=== PATIENT | female | born 1965 | race Caucasian/White ===

== ENCOUNTER 2017-01-16 19:09 | Observation (INO) ==
[2017-01-16] MEDS ORDERED: SODIUM CHLORIDE 0.9% 1,000 ML IV STA (20:10)
[2017-01-16 20:25] LABS: Basophils % 0.7 % (0.0-0.8); Eosinophils # 0.2 10*3/uL (0.0-0.87); Eosinophils % 3.6 % (0.00-10.9); Hemoglobin 13.3 GM/DL (12.0-16.0); Immature Granulocytes % 0.2 %; Immature Granulocytes Absolute 0.01 #; Lymphocytes # 1.8 10*3/uL (1.4-4.0); Lymphocytes % 32.3 % (21.3-54.2); Mean Corpuscular Hemoglobin 32 PG (27-34); Mean Corpuscular Volume 90.5 FL (87-102); Mean Platelet Volume 11.5 FL (9.6-12.0); Monocytes # 0.6 10*3/uL (0.11-0.8); Neutrophils # 2.9 10*3/uL (1.4-7.4); Neutrophils % 52.2 % (38.7-73.9); Platelet Count 179 T/CUMM (130-400); Red Cell Distribution Width 11.7 % (9.3-17.3); White Blood Count 5.5 T/CUMM (4-12)
[2017-01-16 20:33] LABS: INR 1.1; PT Patient Result 11.7 SECS; Partial Thromboplastin Time 27.9 SECS (0-40)
[2017-01-16 20:40] LABS: Alanine Aminotransferase 14 U/L (13-56); Albumin 3.8 G/DL (3.4-5.0); Alkaline Phosphatase 129 U/L (45-117); Aspartate Amino Transferase 11 U/L (0-37); Blood Urea Nitrogen 9 MG/DL (7-18); Calcium 8.3 MG/DL (8.5-10.1); Glucose 106 MG/DL (74-106); Magnesium 2.1 MG/DL (1.8-2.4); Osmolality,Calculated 288.6 MOS/KG (273-304); Potassium 3.7 MMOL/L (3.5-5.1); Sodium 146 MMOL/L (136-145); Total Protein 6.8 G/DL (6.4-8.3); Troponin I Only < 0.015 NG/ML (0.00-0.045)
[2017-01-16 20:53] LABS: Apearance,Urine CLEAR (Clear); Bacteria,Urine Few /HPF (Few); Bilirubin,Urine Negative (Negative); Blood, Urine Small mg/dL (Negative); Glucose,Urine (UA) Negative (Negative); Ketones,Urine Negative (Negative); Mucus,Urine Occasional /LPF (Occasional); Nitrite,Urine Negative (Negative); Protein,Urine Negative; RBC,Urine 3 /HPF (0-4); Squamous Epithelial Cell,Urine Occasional /HPF (0-10); Transitional Epi Cells,Urine Occasional /HPF (<1); Urine Color Yellow (Yellow); Urine Specific Gravity 1.005 (1.001-1.035); Urine Urobilinogen < 2.0 EU/DL (0.2-1.0); WBC,Urine 17 /HPF (0-6)
[2017-01-16 20:53] LABS: Free T4 (Free Thyroxine) 1.95 NG/DL (0.76-1.46); Thyroid Stimulating Hormone 0.077 uIU/ml (0.358-3.74)
[2017-01-16 21:19] LABS: Barbiturates Screen,Urine Negative (Negative); Benzodiazepines Screen,Urine Positive (Negative); Cannabinoid Screen,Urine Negative (Negative); Opiate Screen,Urine Positive (Negative); Phencyclidine Screen,Urine Negative (Negative)
[2017-01-17] MEDS ORDERED: SODIUM CHLORIDE 0.45% 1,000 ML IV SCH (00:40)
[2017-01-17] MEDS ORDERED: ONDANSETRON 4 MG/2 ML VIAL IV PRN (00:40)
[2017-01-17] MEDS ORDERED: ACETAMINOPHEN 325 MG TABLET PO PRN (00:40)
[2017-01-17] MEDS ORDERED: cloNIDine 0.1 MG TABLET PO ONE (02:59)
[2017-01-17 08:04] VITALS: BP 129/78
[2017-01-17] MEDS ORDERED: DOCUSATE SODIUM 100 MG CAPSULE PO SCH (09:00)
[2017-01-17] MEDS ORDERED: PANTOPRAZOLE 40 MG TABLET PO SCH (09:00)
[2017-01-17] MEDS ORDERED: SODIUM CHLORIDE 0.9% 1,000 ML IV SCH (11:00)
[2017-01-17] MEDS ORDERED: LEVOTHYROXINE 50 MCG TABLET PO SCH (12:00)
[2017-01-17] MEDS ORDERED: buPROPion 75 MG TABLET PO SCH (12:00)
== END 2017-01-17 11:32 | disposition left against medical advice (07) ==
LOC: EDUNIT# → EDBD → N.EDINP 19:09 → N.ED 19:09 → N.TELES 01-17 00:17
PROVIDERS: ADMIT Family Medicine; ATTEND Family Medicine

== ENCOUNTER 2018-05-10 19:20 | Observation (INO) ==
[2018-05-10 20:04] LABS: Basophils % 0.6 % (0.0-0.8); Eosinophils # 0.2 10*3/uL (0.0-0.87); Eosinophils % 2.8 % (0.00-10.9); Hemoglobin 13.1 GM/DL (12.0-16.0); Immature Granulocytes % 0.3 %; Immature Granulocytes Absolute 0.02 #; Lymphocytes # 1.2 10*3/uL (1.4-4.0); Lymphocytes % 20.1 % (21.3-54.2); Mean Corpuscular HGB Conc 34.5 GM/DL (32-36); Mean Corpuscular Hemoglobin 31 PG (27-34); Mean Corpuscular Volume 88.4 FL (87-102); Mean Platelet Volume 11.2 FL (9.6-12.0); Monocytes # 0.5 10*3/uL (0.11-0.8); Neutrophils # 4.2 10*3/uL (1.4-7.4); Neutrophils % 68.2 % (38.7-73.9); Platelet Count 171 T/CUMM (130-400); Red Cell Distribution Width 11.1 % (9.3-17.3); White Blood Count 6.2 T/CUMM (4-12)
[2018-05-10] MEDS ORDERED: SODIUM CHLORIDE 0.9% 1,000 ML IV STA (20:13)
[2018-05-10 20:20] LABS: PT Patient Result 10.5 SECS
[2018-05-10 20:34] LABS: Apearance,Urine CLOUDY (Clear); Bacteria,Urine Occasional /HPF (Few); Bilirubin,Urine Negative (Negative); Blood, Urine Small mg/dL (Negative); Glucose,Urine (UA) Negative (Negative); Ketones,Urine Negative (Negative); Mucus,Urine Occasional /LPF (Occasional); Nitrite,Urine Negative (Negative); Protein,Urine Negative; RBC,Urine 4 /HPF (0-4); Squamous Epithelial Cell,Urine Occasional /HPF (0-10); Urine Color Yellow (Yellow); Urine Specific Gravity 1.009 (1.001-1.035); Urine Urobilinogen < 2.0 EU/DL (0.2-1.0); WBC,Urine 8 /HPF (0-6)
[2018-05-10 20:38] LABS: Albumin 3.2 G/DL (3.4-5.0); Bilirubin,Total 0.5 MG/DL (0.2-1.0); Calcium 8.6 MG/DL (8.5-10.1); Osmolality,Calculated 282.4 MOS/KG (273-304); Potassium 3.6 MMOL/L (3.5-5.1); Total Protein 6.5 G/DL (6.4-8.3)
[2018-05-10] MEDS ORDERED: ASPIRIN EC 325 MG TABLET PO STA (21:22)
[2018-05-10] MEDS ORDERED: cefTRIAXone 250 MG VIAL IV STA (21:47)
[2018-05-10 21:54] LABS: Barbiturates Screen,Urine Negative (Negative); Benzodiazepines Screen,Urine Negative (Negative); Cannabinoid Screen,Urine Negative (Negative); Opiate Screen,Urine Positive (Negative); Phencyclidine Screen,Urine Negative (Negative)
[2018-05-10] MEDS ORDERED: cefTRIAXone 1,000 MG VIAL ONE (22:38)
[2018-05-10] MEDS ORDERED: SODIUM CHLORIDE 0.9% 100 ML IV ONE (22:39)
[2018-05-10] MEDS ORDERED: BISACODYL 5 MG TABLET PO PRN (22:48)
[2018-05-10] MEDS ORDERED: ACETAMINOPHEN 325 MG TABLET PO PRN (22:48)
[2018-05-10] MEDS ORDERED: ONDANSETRON 4 MG/2 ML VIAL IV PRN (22:48)
[2018-05-10] MEDS ORDERED: NICOTINE 21 MG/24 HR PATCH TRANSDERM PRN (22:48)
[2018-05-10] MEDS ORDERED: HALOPERIDOL 5 MG/ML AMP IM PRN (22:48)
[2018-05-10] MEDS ORDERED: diphenhydrAMINE CAP 25 MG CAPSULE PO PRN (22:48)
[2018-05-10 23:17] LABS: Risk Ratio 3.97; Thyroid Stimulating Hormone 6.19 uIU/ml (0.358-3.74)
[2018-05-11] MEDS: SODIUM CHLORIDE 0.9% 1,000 ML IV SCH ×2 (01:45→09:59)
[2018-05-11 05:40] LABS: Basophils % 0.6 % (0.0-0.8); Eosinophils # 0.1 10*3/uL (0.0-0.87); Eosinophils % 2.9 % (0.00-10.9); Hematocrit 33.9 VOL% (35.7-47.0); Hemoglobin 11.4 GM/DL (12.0-16.0); Immature Granulocytes % 0.4 %; Immature Granulocytes Absolute 0.02 #; Lymphocytes # 1.4 10*3/uL (1.4-4.0); Lymphocytes % 28.4 % (21.3-54.2); Mean Corpuscular HGB Conc 33.6 GM/DL (32-36); Mean Corpuscular Hemoglobin 31 PG (27-34); Mean Corpuscular Volume 90.6 FL (87-102); Mean Platelet Volume 11.4 FL (9.6-12.0); Monocytes # 0.5 10*3/uL (0.11-0.8); Monocytes % 9.2 % (1.7-12.7); Neutrophils # 2.9 10*3/uL (1.4-7.4); Neutrophils % 58.5 % (38.7-73.9); Platelet Count 140 T/CUMM (130-400); Red Blood Count 3.74 MC/CUMM (3.8-5.5); Red Cell Distribution Width 11.1 % (9.3-17.3); White Blood Count 4.9 T/CUMM (4-12)
[2018-05-11 06:16] LABS: Alanine Aminotransferase 10 U/L (13-56); Albumin 2.6 G/DL (3.4-5.0); Alkaline Phosphatase 67 U/L (45-117); Aspartate Amino Transferase 10 U/L (0-37); Bilirubin,Total < 0.39 MG/DL (0.2-1.0); Blood Urea Nitrogen 16 MG/DL (7-18); Calcium 7.9 MG/DL (8.5-10.1); Glucose 92 MG/DL (74-106); Osmolality,Calculated 288.7 MOS/KG (273-304); Potassium 4.7 MMOL/L (3.5-5.1); Sodium 145 MMOL/L (136-145); Total Protein 5.4 G/DL (6.4-8.3)
[2018-05-11 07:57] VITALS: BP 101/54
[2018-05-11] MEDS ORDERED: PANTOPRAZOLE 40 MG TABLET PO SCH (09:00)
[2018-05-11] MEDS ORDERED: cefTRIAXone 1,000 MG in SYRINGE 1 EACH IV SCH (23:00)
== END 2018-05-11 13:15 | disposition home or self-care (01) ==
LOC: EDUNIT# → N.EDINP 19:20 → N.ED 19:20 → N.TELES 23:53
PROVIDERS: ADMIT Internal Medicine Geriatric Medicine; ATTEND Internal Medicine Geriatric Medicine

== ENCOUNTER 2020-04-18 04:23 | Inpatient (IN) ==
[2020-04-18] MEDS ORDERED: NITROGLYCERIN SL 0.4 MG TABLET SL STA ×2 (04:34→06:13)
[2020-04-18] MEDS ORDERED: ALBUTEROL/IPRATROPIUM 3 ML NEB RESP TX STA (04:59)
[2020-04-18 05:05] LABS: Basophils # 0.1 10*3/uL (0.0-0.2); Basophils % 0.8 % (0.0-0.8); Eosinophils # 0.3 10*3/uL (0.0-0.87); Eosinophils % 3.8 % (0.00-10.9); Hematocrit 45.3 VOL% (35.7-47.0); Hemoglobin 15.3 GM/DL (12.0-16.0); Immature Granulocytes % 0.3 %; Immature Granulocytes Absolute 0.02 #; Lymphocytes # 1.9 10*3/uL (1.4-4.0); Lymphocytes % 25.1 % (21.3-54.2); Mean Corpuscular HGB Conc 33.8 GM/DL (32-36); Mean Corpuscular Volume 94.2 FL (87-102); Mean Platelet Volume 10.5 FL (9.6-12.0); Monocytes % 7.5 % (1.7-12.7); Neutrophils % 62.5 % (38.7-73.9); Platelet Count 165 T/CUMM (130-400); Red Blood Count 4.81 MC/CUMM (3.8-5.5); Red Cell Distribution Width 11.9 % (9.3-17.3); White Blood Count 7.6 T/CUMM (4-12)
[2020-04-18 05:14] LABS: Albumin 3.9 G/DL (3.4-5.0); Bilirubin,Total 0.6 MG/DL (0.2-1.0); Calcium 8.6 MG/DL (8.5-10.1); Osmolality,Calculated 279.4 MOS/KG (273-304)
[2020-04-18] MEDS ORDERED: ENOXAPARIN 30 MG/0.3 ML SYRINGE SUBCUT STA (05:14)
[2020-04-18] MEDS ORDERED: CLOPIDOGREL 300 MG TABLET PO STA (05:14)
[2020-04-18] MEDS ORDERED: ONDANSETRON 4 MG/2 ML VIAL IV PRN (05:22)
[2020-04-18] MEDS ORDERED: ASPIRIN CHEW 81 MG TABLET PO STA (05:22)
[2020-04-18] MEDS ORDERED: MAGNESIUM SULF RIDER 4 GM in PREMIX 1 EACH IV PRN (05:22)
[2020-04-18] MEDS ORDERED: MAGNESIUM SULF RIDER 2 GM in PREMIX 1 EACH IV PRN (05:22)
[2020-04-18] MEDS ORDERED: ENOXAPARIN 40 MG/0.4 ML SYRINGE ONE (05:30)
[2020-04-18] MEDS: ALBUTEROL/IPRATROPIUM 3 ML NEB RESP TX SCH ×3 (07:55→19:30)
[2020-04-18] MEDS: ENOXAPARIN 40 MG/0.4 ML SYRINGE SUBCUT SCH ×2 (08:29→20:00)
[2020-04-18] MEDS: DEXTROSE 5% NACL 0.45% 1,000 ML IV SCH ×4 (08:44→20:00)
[2020-04-18] MEDS ORDERED: NICOTINE 14 MG/24 HR PATCH TRANSDERM PRN (10:36)
[2020-04-18] MEDS ORDERED: BACLOFEN 10 MG TABLET PO PRN (12:30)
[2020-04-18] MEDS: NITROGLYCERIN SL 0.4 MG TABLET SL PRN ×2 (15:25→15:30)
[2020-04-19] MEDS: ALBUTEROL/IPRATROPIUM 3 ML NEB RESP TX SCH ×4 (01:12→19:14)
[2020-04-19] MEDS: DEXTROSE 5% NACL 0.45% 1,000 ML IV SCH ×3 (03:04→19:06)
[2020-04-19] MEDS: NITROGLYCERIN SL 0.4 MG TABLET SL PRN ×3 (07:09→07:38)
[2020-04-19] MEDS ORDERED: NITROGLYCERIN 2% OINT 1 INCH/GM PACK TOP ONE (08:06)
[2020-04-19] MEDS: CLOPIDOGREL 75 MG TABLET PO SCH (08:21)
[2020-04-19] MEDS: NITROGLYCERIN 2% OINT 1 INCH/GM PACK TOP SCH ×5 (08:21→17:45)
[2020-04-19] MEDS: METOPROLOL SUCCINATE XL 25 MG TABLET PO SCH (08:21)
[2020-04-19] MEDS: lisinopriL 20 MG TABLET PO SCH (08:21)
[2020-04-19] MEDS: ATORVASTATIN 40 MG TABLET PO SCH (08:21)
[2020-04-19] MEDS: ASPIRIN EC 81 MG TABLET PO SCH (08:21)
[2020-04-19] MEDS: ENOXAPARIN 40 MG/0.4 ML SYRINGE SUBCUT SCH ×2 (08:24→20:37)
[2020-04-19] MEDS ORDERED: MAGNESIUM SULF RIDER 2 GM in PREMIX 1 EACH IV PRN (12:34)
[2020-04-19] MEDS ORDERED: POTASSIUM CHLORIDE RIDER 10 MEQ in PREMIX 1 EACH IV PRN (12:34)
[2020-04-20] MEDS: NITROGLYCERIN 2% OINT 1 INCH/GM PACK TOP SCH ×4 (00:19→17:05)
[2020-04-20] MEDS: ALBUTEROL/IPRATROPIUM 3 ML NEB RESP TX SCH ×4 (00:56→19:16)
[2020-04-20] MEDS: DEXTROSE 5% NACL 0.45% 1,000 ML IV SCH (03:06)
[2020-04-20 06:53] LABS: Basophils % 0.8 % (0.0-0.8); Eosinophils # 0.2 10*3/uL (0.0-0.87); Eosinophils % 6.1 % (0.00-10.9); Hematocrit 34.5 VOL% (35.7-47.0); Hemoglobin 11.4 GM/DL (12.0-16.0); Lymphocytes # 0.8 10*3/uL (1.4-4.0); Lymphocytes % 29.2 % (21.3-54.2); Mean Corpuscular Volume 96.1 FL (87-102); Mean Platelet Volume 10.7 FL (9.6-12.0); Monocytes % 9.8 % (1.7-12.7); Neutrophils % 54.1 % (38.7-73.9); Platelet Count 101 T/CUMM (130-400); Red Blood Count 3.59 MC/CUMM (3.8-5.5); White Blood Count 2.6 T/CUMM (4-12)
[2020-04-20 07:10] LABS: Calcium 7.9 MG/DL (8.5-10.1); Osmolality,Calculated 284.8 MOS/KG (273-304)
[2020-04-20 07:28] LABS: Hypochromasia 1+; Microcytosis 1+; Platelet Estimate Decreased
[2020-04-20] MEDS ORDERED: diphenhydrAMINE 50 MG/1 ML VIAL IV ONE (07:30)
[2020-04-20] MEDS ORDERED: methylPREDNISolone SOD SUC 125 MG/2 ML VIAL IV ONE (07:30)
[2020-04-20] MEDS: CLOPIDOGREL 75 MG TABLET PO SCH (08:42)
[2020-04-20] MEDS: lisinopriL 20 MG TABLET PO SCH (08:42)
[2020-04-20] MEDS: ASPIRIN EC 81 MG TABLET PO SCH (08:42)
[2020-04-20] MEDS: ATORVASTATIN 40 MG TABLET PO SCH (08:42)
[2020-04-20] MEDS: FAMOTIDINE 20 MG/2 ML VIAL IV SCH ×2 (08:42→21:43)
[2020-04-20] MEDS: METOPROLOL SUCCINATE XL 25 MG TABLET PO SCH ×2 (08:42→21:43)
[2020-04-20] MEDS: ENOXAPARIN 40 MG/0.4 ML SYRINGE SUBCUT SCH ×2 (08:42→21:43)
[2020-04-20] MEDS ORDERED: HEPARIN/NACL 0.9% 2 UNITS/ML 1,000 ML IV ONE (11:44)
[2020-04-20] MEDS ORDERED: LIDOCAINE 1% 20 ML VIAL ONE (11:44)
[2020-04-20] MEDS ORDERED: HEPARIN/NACL 0.9% 2 UNITS/ML 500 ML IV ONE (11:45)
[2020-04-20] MEDS ORDERED: HEPARIN/NACL 0.9% 2 UNITS/ML 0 ML IV ONE (14:10)
[2020-04-20] MEDS ORDERED: MIDAZOLAM 2 MG/2 ML VIAL ONE (14:15)
[2020-04-20] MEDS ORDERED: HYDROmorphone 2 MG/1 ML VIAL ONE (14:35)
[2020-04-20] MEDS ORDERED: hydrALAZINE 20 MG/1 ML VIAL ONE (14:40)
[2020-04-20] MEDS ORDERED: HEPARIN 5,000 UNIT/1 ML VIAL ONE (14:48)
[2020-04-20] MEDS ORDERED: CLOPIDOGREL 300 MG TABLET ONE (14:49)
[2020-04-20] MEDS ORDERED: NITROGLYCERIN DRIP 50 MG/250 ML BOTTLE IV ONE (14:50)
[2020-04-20] MEDS ORDERED: LABETALOL 20 MG/4 ML SYRINGE IV ONE (15:24)
[2020-04-21] MEDS: NITROGLYCERIN 2% OINT 1 INCH/GM PACK TOP SCH ×2 (00:51→06:36)
[2020-04-21] MEDS: ALBUTEROL/IPRATROPIUM 3 ML NEB RESP TX SCH ×2 (02:10→07:35)
[2020-04-21 05:11] LABS: Hematocrit 33.4 VOL% (35.7-47.0); Hemoglobin 11.3 GM/DL (12.0-16.0); Immature Granulocytes % 0.9 %; Immature Granulocytes Absolute 0.04 #; Lymphocytes # 0.5 10*3/uL (1.4-4.0); Mean Corpuscular HGB Conc 33.8 GM/DL (32-36); Mean Corpuscular Volume 95.4 FL (87-102); Mean Platelet Volume 11.5 FL (9.6-12.0); Monocytes % 3.5 % (1.7-12.7); Neutrophils % 85.6 % (38.7-73.9); Platelet Count 123 T/CUMM (130-400); Red Cell Distribution Width 12.2 % (9.3-17.3); White Blood Count 4.6 T/CUMM (4-12)
[2020-04-21 05:37] LABS: Calcium 8.1 MG/DL (8.5-10.1); Osmolality,Calculated 289.7 MOS/KG (273-304)
[2020-04-21] MEDS: ASPIRIN EC 81 MG TABLET PO SCH (09:04)
[2020-04-21] MEDS: FAMOTIDINE 20 MG/2 ML VIAL IV SCH (09:04)
[2020-04-21] MEDS: lisinopriL 20 MG TABLET PO SCH (09:04)
[2020-04-21] MEDS: CLOPIDOGREL 75 MG TABLET PO SCH (09:05)
[2020-04-21] MEDS: ATORVASTATIN 40 MG TABLET PO SCH (09:05)
[2020-04-21] MEDS: METOPROLOL SUCCINATE XL 25 MG TABLET PO SCH (09:05)
[2020-04-21 11:57] VITALS: BP 152/105
== END 2020-04-21 13:00 | disposition home or self-care (01) | DRG 247 ==
LOC: EDBD → EDUNIT# → N.ED 04:23 → N.EDINP 04:23 → N.TELES 08:24
PROVIDERS: ADMIT Internal Medicine Cardiovascular Disease; ATTEND Internal Medicine Cardiovascular Disease
PROC: CLCCHCL (ICD-10-PCS; 2020-04-20 12:45)

== ENCOUNTER 2020-06-30 15:47 | Inpatient (IN) ==
[2020-06-30] MEDS ORDERED: ACETAMINOPHEN 325 MG TABLET PO PRN (15:54)
[2020-06-30] MEDS ORDERED: ZALEPLON 5 MG CAPSULE PO PRN (15:54)
[2020-06-30] MEDS ORDERED: MAGNESIUM SULF RIDER 2 GM in PREMIX 1 EACH IV PRN (15:54)
[2020-06-30] MEDS ORDERED: MAGNESIUM SULF RIDER 4 GM in PREMIX 1 EACH IV PRN (15:54)
[2020-06-30] MEDS ORDERED: diphenhydrAMINE CAP 25 MG CAPSULE PO PRN (15:54)
[2020-06-30] MEDS ORDERED: SIMETHICONE CHEW 125 MG TABLET PO PRN (15:54)
[2020-06-30] MEDS ORDERED: ALBUTEROL 1.25 MG/3 ML NEB RESP TX PRN (15:59)
[2020-06-30] MEDS ORDERED: NITROGLYCERIN SL 0.4 MG TABLET SL PRN (15:59)
[2020-06-30] MEDS ORDERED: ENOXAPARIN 40 MG/0.4 ML SYRINGE SUBCUT ONE (16:00)
[2020-06-30] MEDS ORDERED: NICOTINE 21 MG/24 HR PATCH TRANSDERM PRN (16:01)
[2020-06-30 17:49] LABS: Basophils # 0.1 10*3/uL (0.0-0.2); Basophils % 1.5 % (0.0-0.8); Eosinophils # 0.4 10*3/uL (0.0-0.87); Eosinophils % 4.2 % (0.00-10.9); Hematocrit 49.8 VOL% (35.7-47.0); Hemoglobin 16.3 GM/DL (12.0-16.0); Immature Granulocytes % 0.5 %; Immature Granulocytes Absolute 0.04 #; Lymphocytes # 2.6 10*3/uL (1.4-4.0); Lymphocytes % 29.7 % (21.3-54.2); Mean Corpuscular HGB Conc 32.7 GM/DL (32-36); Mean Corpuscular Volume 94.9 FL (87-102); Mean Platelet Volume 10.8 FL (9.6-12.0); Neutrophils % 55.1 % (38.7-73.9); Platelet Count 265 T/CUMM (130-400); Red Blood Count 5.25 MC/CUMM (3.8-5.5); Red Cell Distribution Width 11.9 % (9.3-17.3); White Blood Count 8.7 T/CUMM (4-12)
[2020-06-30] MEDS: diphenhydrAMINE CAP 25 MG CAPSULE PO SCH ×2 (18:05→23:43)
[2020-06-30 18:13] LABS: Albumin 4.6 G/DL (3.4-5.0); Bilirubin,Total 0.5 MG/DL (0.2-1.0); Calcium 9.5 MG/DL (8.5-10.1); Osmolality,Calculated 272.2 MOS/KG (273-304); Potassium 3.7 MMOL/L (3.5-5.1); Total Protein 8.1 G/DL (6.4-8.2)
[2020-06-30] MEDS: BACLOFEN 10 MG TABLET PO SCH (20:38)
[2020-06-30] MEDS: ATORVASTATIN 40 MG TABLET PO SCH (20:38)
[2020-06-30] MEDS: methylPREDNISolone SOD SUC 125 MG/2 ML VIAL IV SCH (20:39)
[2020-06-30] MEDS: FAMOTIDINE 20 MG/2 ML VIAL IV SCH (20:40)
[2020-07-01] MEDS: FAMOTIDINE 20 MG/2 ML VIAL IV SCH ×3 (04:47→15:54)
[2020-07-01] MEDS: methylPREDNISolone SOD SUC 125 MG/2 ML VIAL IV SCH ×3 (04:51→15:54)
[2020-07-01] MEDS: diphenhydrAMINE CAP 25 MG CAPSULE PO SCH ×3 (05:20→18:23)
[2020-07-01 05:46] LABS: Basophils % 0.9 % (0.0-0.8); Eosinophils % 0.3 % (0.00-10.9); Hematocrit 44.1 VOL% (35.7-47.0); Hemoglobin 14.8 GM/DL (12.0-16.0); Immature Granulocytes % 0.6 %; Immature Granulocytes Absolute 0.02 #; Lymphocytes # 0.7 10*3/uL (1.4-4.0); Lymphocytes % 21.1 % (21.3-54.2); Mean Corpuscular HGB Conc 33.6 GM/DL (32-36); Mean Corpuscular Volume 92.5 FL (87-102); Monocytes % 1.4 % (1.7-12.7); Neutrophils % 75.7 % (38.7-73.9); Platelet Count 211 T/CUMM (130-400); Red Blood Count 4.77 MC/CUMM (3.8-5.5); Red Cell Distribution Width 11.8 % (9.3-17.3); White Blood Count 3.5 T/CUMM (4-12)
[2020-07-01 06:06] LABS: Albumin 3.9 G/DL (3.4-5.0); Bilirubin,Total 0.9 MG/DL (0.2-1.0); Osmolality,Calculated 273.4 MOS/KG (273-304); Potassium 4.1 MMOL/L (3.5-5.1); Total Protein 6.8 G/DL (6.4-8.2)
[2020-07-01 06:15] LABS: Lymphocytes 22 % (20-55); Segmented Neutrophils 78 % (50-85); Total Cells Counted 100
[2020-07-01 06:16] LABS: Hypochromasia 1+; Microcytosis 1+; Platelet Estimate Normal
[2020-07-01] MEDS: LEVOTHYROXINE 50 MCG TABLET PO SCH (06:51)
[2020-07-01] MEDS ORDERED: DIAZEPAM 5 MG TABLET PO ONE (09:43)
[2020-07-01] MEDS ORDERED: diphenhydrAMINE CAP 25 MG CAPSULE PO ONE (09:43)
[2020-07-01] MEDS ORDERED: NON-FORMULARY MEDICATION (Ondansetron Hcl 8 mg Tablet) PO PRN (09:44)
[2020-07-01] MEDS ORDERED: NON-FORMULARY MEDICATION (Albuterol Sulfate [Ventolin Hfa] 90 mcg/actuation HFA aerosol in INH PRN (09:44)
[2020-07-01] MEDS: BACLOFEN 10 MG TABLET PO SCH ×3 (09:59→22:26)
[2020-07-01] MEDS: hydroCHLOROthiazide 25 MG TABLET PO SCH (09:59)
[2020-07-01] MEDS: ASPIRIN EC 81 MG TABLET PO SCH (10:25)
[2020-07-01] MEDS: PANTOPRAZOLE 40 MG TABLET PO SCH (10:26)
[2020-07-01] MEDS: CLOPIDOGREL 75 MG TABLET PO SCH (10:26)
[2020-07-01] MEDS: SODIUM CHLORIDE 0.45% 1,000 ML IV SCH ×3 (10:26→19:25)
[2020-07-01] MEDS ORDERED: LIDOCAINE 1% 20 ML VIAL ONE (10:53)
[2020-07-01] MEDS ORDERED: HEPARIN/NACL 0.9% 2 UNITS/ML 1,500 ML IV ONE (10:53)
[2020-07-01] MEDS ORDERED: amLODIPine 5 MG TABLET PO SCH (11:00)
[2020-07-01] MEDS ORDERED: HYDROmorphone 2 MG/1 ML VIAL ONE (11:33)
[2020-07-01] MEDS ORDERED: MIDAZOLAM 2 MG/2 ML VIAL ONE (11:33)
[2020-07-01] MEDS ORDERED: NITROGLYCERIN DRIP 50 MG/250 ML BOTTLE IV ONE (11:52)
[2020-07-01] MEDS ORDERED: HEPARIN 5,000 UNIT/1 ML VIAL ONE (11:59)
[2020-07-01] MEDS: ATORVASTATIN 40 MG TABLET PO SCH (20:50)
[2020-07-02] MEDS: diphenhydrAMINE CAP 25 MG CAPSULE PO SCH ×4 (00:10→18:18)
[2020-07-02] MEDS: FAMOTIDINE 20 MG/2 ML VIAL IV SCH ×2 (04:10→17:50)
[2020-07-02] MEDS: methylPREDNISolone SOD SUC 125 MG/2 ML VIAL IV SCH ×2 (04:12→17:50)
[2020-07-02] MEDS: ONDANSETRON 4 MG/2 ML VIAL IV PRN ×4 (04:15→20:54)
[2020-07-02] MEDS ORDERED: MORPHINE 4 MG/1 ML VIAL IV ONE (05:03)
[2020-07-02] MEDS ORDERED: PROMETHAZINE 25 MG/1 ML VIAL IM STA (05:19)
[2020-07-02] MEDS: LEVOTHYROXINE 50 MCG TABLET PO SCH (05:57)
[2020-07-02 07:25] LABS: Basophils % 0.1 % (0.0-0.8); Hematocrit 46.3 VOL% (35.7-47.0); Hemoglobin 16.2 GM/DL (12.0-16.0); Immature Granulocytes % 0.6 %; Immature Granulocytes Absolute 0.14 #; Lymphocytes # 0.7 10*3/uL (1.4-4.0); Lymphocytes % 3.1 % (21.3-54.2); Mean Corpuscular Volume 88.5 FL (87-102); Mean Platelet Volume 10.9 FL (9.6-12.0); Monocytes % 3.2 % (1.7-12.7); Platelet Count 222 T/CUMM (130-400); Red Blood Count 5.23 MC/CUMM (3.8-5.5); Red Cell Distribution Width 11.8 % (9.3-17.3); White Blood Count 21.9 T/CUMM (4-12)
[2020-07-02 07:43] LABS: Calcium 9.4 MG/DL (8.5-10.1); Osmolality,Calculated 273.4 MOS/KG (273-304)
[2020-07-02 07:54] LABS: Band Neutrophils 2 % (0-10); Hypochromasia 1+; Lymphocytes 1 % (20-55); Microcytosis 1+; Platelet Estimate Normal; Segmented Neutrophils 94 % (50-85); Total Cells Counted 100
[2020-07-02 09:37] LABS: Risk Ratio 2.39; VLDL CHOLESTEROL 20.6 MG/DL
[2020-07-02] MEDS: PANTOPRAZOLE 40 MG TABLET PO SCH (10:02)
[2020-07-02] MEDS: ASPIRIN EC 81 MG TABLET PO SCH (10:02)
[2020-07-02] MEDS: hydroCHLOROthiazide 25 MG TABLET PO SCH (10:02)
[2020-07-02] MEDS: CLOPIDOGREL 75 MG TABLET PO SCH (10:02)
[2020-07-02] MEDS: amLODIPine 10 MG TABLET PO SCH (10:03)
[2020-07-02] MEDS: BACLOFEN 10 MG TABLET PO SCH ×3 (10:06→20:56)
[2020-07-02] MEDS: BUDESONIDE/FORMOTEROL 80-4.5 INHALER 6.9 GM INH SCH (10:06)
[2020-07-02] MEDS ORDERED: hydrALAZINE 20 MG/1 ML VIAL IV PRN (10:19)
[2020-07-02 14:14] LABS: Albumin 4.2 G/DL (3.4-5.0); Bilirubin,Direct 0.22 MG/DL (0.0-0.20); Bilirubin,Indirect 0.3 MG/DL (0.0-1.0); Bilirubin,Total 0.5 MG/DL (0.2-1.0); Total Protein 7.4 G/DL (6.4-8.2)
[2020-07-02] MEDS: ATORVASTATIN 40 MG TABLET PO SCH (20:54)
[2020-07-03] MEDS: SODIUM CHLORIDE 0.45% 1,000 ML IV SCH ×3 (00:15→20:51)
[2020-07-03] MEDS: diphenhydrAMINE CAP 25 MG CAPSULE PO SCH ×2 (00:15→05:30)
[2020-07-03] MEDS: FAMOTIDINE 20 MG/2 ML VIAL IV SCH (04:00)
[2020-07-03] MEDS: methylPREDNISolone SOD SUC 125 MG/2 ML VIAL IV SCH (04:02)
[2020-07-03 05:18] LABS: Basophils % 0.1 % (0.0-0.8); Hematocrit 45.7 VOL% (35.7-47.0); Hemoglobin 16.2 GM/DL (12.0-16.0); Immature Granulocytes % 0.4 %; Immature Granulocytes Absolute 0.05 #; Lymphocytes % 6.9 % (21.3-54.2); Mean Corpuscular HGB Conc 35.4 GM/DL (32-36); Mean Corpuscular Volume 87.2 FL (87-102); Mean Platelet Volume 11.2 FL (9.6-12.0); Monocytes % 7.8 % (1.7-12.7); Neutrophils % 84.8 % (38.7-73.9); Platelet Count 223 T/CUMM (130-400); Red Blood Count 5.24 MC/CUMM (3.8-5.5); Red Cell Distribution Width 11.8 % (9.3-17.3); White Blood Count 14.1 T/CUMM (4-12)
[2020-07-03] MEDS: LEVOTHYROXINE 50 MCG TABLET PO SCH (05:30)
[2020-07-03 05:36] LABS: Calcium 8.1 MG/DL (8.5-10.1); Osmolality,Calculated 268.8 MOS/KG (273-304); Potassium 4.6 MMOL/L (3.5-5.1)
[2020-07-03] MEDS: amLODIPine 10 MG TABLET PO SCH (09:15)
[2020-07-03] MEDS: PANTOPRAZOLE 40 MG TABLET PO SCH (09:15)
[2020-07-03] MEDS: hydroCHLOROthiazide 25 MG TABLET PO SCH (09:15)
[2020-07-03] MEDS: ASPIRIN EC 81 MG TABLET PO SCH (09:15)
[2020-07-03] MEDS: BACLOFEN 10 MG TABLET PO SCH ×3 (09:15→20:51)
[2020-07-03] MEDS: CLOPIDOGREL 75 MG TABLET PO SCH (09:15)
[2020-07-03] MEDS: BUDESONIDE/FORMOTEROL 80-4.5 INHALER 6.9 GM INH SCH (09:17)
[2020-07-03] MEDS: hydrALAZINE 20 MG/1 ML VIAL IV SCH ×3 (09:39→20:50)
[2020-07-03] MEDS: ATORVASTATIN 40 MG TABLET PO SCH (20:48)
[2020-07-04] MEDS: hydrALAZINE 20 MG/1 ML VIAL IV SCH ×2 (03:10→09:23)
[2020-07-04 05:20] LABS: Basophils % 0.1 % (0.0-0.8); Hematocrit 38.6 VOL% (35.7-47.0); Immature Granulocytes % 0.5 %; Immature Granulocytes Absolute 0.06 #; Lymphocytes # 1.1 10*3/uL (1.4-4.0); Lymphocytes % 9.2 % (21.3-54.2); Mean Corpuscular HGB Conc 33.2 GM/DL (32-36); Mean Corpuscular Volume 93.9 FL (87-102); Mean Platelet Volume 11.4 FL (9.6-12.0); Monocytes % 13.6 % (1.7-12.7); Neutrophils % 76.6 % (38.7-73.9); Red Cell Distribution Width 11.9 % (9.3-17.3)
[2020-07-04 05:33] LABS: Calcium 7.6 MG/DL (8.5-10.1); Osmolality,Calculated 273.2 MOS/KG (273-304); Potassium 3.7 MMOL/L (3.5-5.1)
[2020-07-04 06:08] LABS: Hemoglobin 12.8 GM/DL (12.0-16.0); Red Blood Count 4.11 MC/CUMM (3.8-5.5); White Blood Count 12.3 T/CUMM (4-12)
[2020-07-04 06:09] LABS: Platelet Count 144 T/CUMM (130-400)
[2020-07-04] MEDS: LEVOTHYROXINE 50 MCG TABLET PO SCH (06:15)
[2020-07-04] MEDS: SODIUM CHLORIDE 0.45% 1,000 ML IV SCH (06:15)
[2020-07-04] MEDS: hydroCHLOROthiazide 25 MG TABLET PO SCH (09:21)
[2020-07-04] MEDS: CLOPIDOGREL 75 MG TABLET PO SCH (09:22)
[2020-07-04] MEDS: amLODIPine 10 MG TABLET PO SCH (09:22)
[2020-07-04] MEDS: PANTOPRAZOLE 40 MG TABLET PO SCH (09:22)
[2020-07-04] MEDS: BACLOFEN 10 MG TABLET PO SCH (09:22)
[2020-07-04] MEDS: ASPIRIN EC 81 MG TABLET PO SCH (09:26)
[2020-07-04] MEDS: BUDESONIDE/FORMOTEROL 80-4.5 INHALER 6.9 GM INH SCH (09:33)
[2020-07-04 12:38] VITALS: BP 118/72
== END 2020-07-04 13:11 | disposition home health service (06) | DRG 981 ==
LOC: INTOOBSV 17:06 → N.TELES 17:06
PROVIDERS: ADMIT Internal Medicine Cardiovascular Disease; ATTEND Internal Medicine Cardiovascular Disease
PROC: CLCCHCL (ICD-10-PCS; 2020-07-01 11:45)

== ENCOUNTER 2020-09-27 09:12 | Observation (INO) ==
[2020-09-27] MEDS ORDERED: methylPREDNISolone SOD SUC 125 MG/2 ML VIAL IV STA (09:44)
[2020-09-27] MEDS ORDERED: ALBUTEROL 2.5 MG/3 ML NEB RESP TX STA (09:44)
[2020-09-27] MEDS ORDERED: amLODIPine 5 MG TABLET PO STA (09:46)
[2020-09-27 10:12] LABS: Basophils # 0.1 10*3/uL (0.0-0.2); Basophils % 1.5 % (0.0-0.8); Eosinophils # 0.2 10*3/uL (0.0-0.87); Eosinophils % 4.1 % (0.00-10.9); Hematocrit 45.4 VOL% (35.7-47.0); Hemoglobin 15.1 GM/DL (12.0-16.0); Immature Granulocytes % 0.3 %; Immature Granulocytes Absolute 0.02 #; Lymphocytes # 1.5 10*3/uL (1.4-4.0); Lymphocytes % 25.9 % (21.3-54.2); Mean Corpuscular HGB Conc 33.3 GM/DL (32-36); Mean Platelet Volume 10.6 FL (9.6-12.0); Monocytes % 9.2 % (1.7-12.7); Platelet Count 179 T/CUMM (130-400); Red Blood Count 4.88 MC/CUMM (3.8-5.5); Red Cell Distribution Width 12.6 % (9.3-17.3); White Blood Count 5.9 T/CUMM (4-12)
[2020-09-27 10:29] LABS: Calcium 8.7 MG/DL (8.5-10.1); Osmolality,Calculated 280.1 MOS/KG (273-304); Potassium 3.3 MMOL/L (3.5-5.1)
[2020-09-27] MEDS ORDERED: ONDANSETRON 4 MG/2 ML VIAL IV PRN (12:07)
[2020-09-27] MEDS ORDERED: GLUCAGON 1 MG VIAL IM PRN (12:07)
[2020-09-27] MEDS ORDERED: DEXTROSE 50% 25 GM/50 ML VIAL IV PRN (12:07)
[2020-09-27] MEDS: ENOXAPARIN 40 MG/0.4 ML SYRINGE SUBCUT SCH (13:14)
[2020-09-27] MEDS: CLOPIDOGREL 75 MG TABLET PO SCH (13:14)
[2020-09-27] MEDS: PANTOPRAZOLE 40 MG TABLET PO SCH (13:44)
[2020-09-27] MEDS: NICOTINE 14 MG/24 HR PATCH TRANSDERM SCH (13:44)
[2020-09-27] MEDS: ALBUTEROL/IPRATROPIUM 3 ML NEB RESP TX SCH (15:51)
[2020-09-27] MEDS: POTASSIUM CHLORIDE 20 MEQ TABLET PO PRN ×3 (15:54→21:30)
[2020-09-27] MEDS: BUDESONIDE/FORMOTEROL 80-4.5 INHALER 6.9 GM INH SCH (18:15)
[2020-09-27] MEDS ORDERED: ATORVASTATIN 40 MG TABLET PO SCH ×2 (19:00→21:00)
[2020-09-27] MEDS ORDERED: methylPREDNISolone SOD SUC 40 MG/1 ML VIAL IV ONE (20:12)
[2020-09-27] MEDS ORDERED: ZALEPLON 5 MG CAPSULE PO PRN (22:17)
[2020-09-28] MEDS: ALBUTEROL/IPRATROPIUM 3 ML NEB RESP TX SCH ×3 (00:29→15:00)
[2020-09-28 05:18] LABS: Calcium 8.8 MG/DL (8.5-10.1); Osmolality,Calculated 288.8 MOS/KG (273-304); Potassium 4.8 MMOL/L (3.5-5.1); Thyroid Stimulating Hormone 0.488 uIU/ml (0.358-3.74)
[2020-09-28] MEDS ORDERED: LEVOTHYROXINE 75 MCG TABLET PO SCH (07:30)
[2020-09-28] MEDS ORDERED: amLODIPine 5 MG TABLET PO SCH (09:00)
[2020-09-28] MEDS ORDERED: ASPIRIN EC 81 MG TABLET PO SCH (09:00)
[2020-09-28] MEDS: NICOTINE 14 MG/24 HR PATCH TRANSDERM SCH (10:41)
[2020-09-28] MEDS: BUDESONIDE/FORMOTEROL 80-4.5 INHALER 6.9 GM INH SCH (10:41)
[2020-09-28] MEDS: CLOPIDOGREL 75 MG TABLET PO SCH (10:41)
[2020-09-28] MEDS: PANTOPRAZOLE 40 MG TABLET PO SCH (10:41)
[2020-09-28] MEDS: ENOXAPARIN 40 MG/0.4 ML SYRINGE SUBCUT SCH (15:55)
[2020-09-28 17:23] VITALS: BP 118/74
== END 2020-09-28 18:13 | disposition home or self-care (01) ==
LOC: N.EDINP 09:12 → N.ED 09:12 → SUATTDRO 12:07 → N.TELEN 12:32
PROVIDERS: ADMIT Internal Medicine; ATTEND Internal Medicine

== ENCOUNTER 2020-11-01 12:05 | Inpatient (IN) ==
[2020-11-01] MEDS ORDERED: ALBUTEROL 2.5 MG/3 ML NEB RESP TX STA ×2 (14:22→15:21)
[2020-11-01] MEDS ORDERED: methylPREDNISolone SOD SUC 40 MG/1 ML VIAL IV STA (14:24)
[2020-11-01 15:34] LABS: Basophils # 0.1 10*3/uL (0.0-0.2); Basophils % 1.4 % (0.0-0.8); Eosinophils # 0.3 10*3/uL (0.0-0.87); Eosinophils % 6.4 % (0.00-10.9); Hematocrit 39.9 VOL% (35.7-47.0); Hemoglobin 12.8 GM/DL (12.0-16.0); Immature Granulocytes % 0.2 %; Immature Granulocytes Absolute 0.01 #; Lymphocytes # 1.7 10*3/uL (1.4-4.0); Lymphocytes % 33.1 % (21.3-54.2); Mean Corpuscular HGB Conc 32.1 GM/DL (32-36); Mean Corpuscular Volume 95.2 FL (87-102); Mean Platelet Volume 11.6 FL (9.6-12.0); Monocytes % 12.7 % (1.7-12.7); Neutrophils % 46.2 % (38.7-73.9); Platelet Count 132 T/CUMM (130-400); Red Blood Count 4.19 MC/CUMM (3.8-5.5); Red Cell Distribution Width 11.7 % (9.3-17.3)
[2020-11-01 15:56] LABS: Albumin 3.5 G/DL (3.4-5.0); Bilirubin,Total 0.4 MG/DL (0.20-1.00); Calcium 8.1 MG/DL (8.5-10.1)
[2020-11-01 16:05] LABS: Atypical Lymphocytes 1+; Eosinophils 4 % (0-10); Lymphocytes 34 % (20-55); Macrocytosis Slight; Reactive Lymphocytes 2+; Segmented Neutrophils 54 % (50-85); Total Cells Counted 100
[2020-11-01 16:06] LABS: Platelet Estimate Decreased
[2020-11-01] MEDS ORDERED: HYDROmorphone 2 MG/1 ML VIAL IV STA (16:59)
[2020-11-01] MEDS ORDERED: ONDANSETRON 4 MG/2 ML VIAL IV ONE (17:00)
[2020-11-01] MEDS ORDERED: GLUCAGON 1 MG VIAL IM PRN (17:27)
[2020-11-01] MEDS ORDERED: DEXTROSE 50% 25 GM/50 ML VIAL IV PRN (17:27)
[2020-11-01] MEDS ORDERED: ZALEPLON 5 MG CAPSULE PO PRN (17:27)
[2020-11-01] MEDS ORDERED: ACETAMINOPHEN 325 MG TABLET PO PRN (17:27)
[2020-11-01] MEDS ORDERED: LACTULOSE 20 GM/30 ML UDCUP PO PRN (17:27)
[2020-11-01] MEDS ORDERED: hydrALAZINE 20 MG/1 ML VIAL IV PRN (17:27)
[2020-11-01] MEDS ORDERED: ENOXAPARIN 40 MG/0.4 ML SYRINGE SUBCUT SCH (17:30)
[2020-11-01] MEDS ORDERED: amLODIPine 5 MG TABLET PO PRN (17:42)
[2020-11-01] MEDS: AZITHROMYCIN 250 MG TABLET PO SCH (18:38)
[2020-11-01] MEDS: SODIUM CHLORIDE 0.9% 1,000 ML IV SCH (18:38)
[2020-11-01] MEDS: ALBUTEROL/IPRATROPIUM 3 ML NEB RESP TX SCH (19:25)
[2020-11-01] MEDS: PANTOPRAZOLE 40 MG VIAL IV SCH (21:43)
[2020-11-01] MEDS: MORPHINE 2 MG/1 ML SYRINGE IV PRN (21:44)
[2020-11-01] MEDS: methylPREDNISolone SOD SUC 40 MG/1 ML VIAL IV SCH (22:40)
[2020-11-02] MEDS: ALBUTEROL/IPRATROPIUM 3 ML NEB RESP TX SCH ×4 (00:20→19:11)
[2020-11-02 04:20] LABS: Basophils % 0.5 % (0.0-0.8); Hematocrit 35.8 VOL% (35.7-47.0); Hemoglobin 11.8 GM/DL (12.0-16.0); Immature Granulocytes % 0.5 %; Immature Granulocytes Absolute 0.01 #; Lymphocytes # 0.3 10*3/uL (1.4-4.0); Lymphocytes % 12.8 % (21.3-54.2); Mean Platelet Volume 12.4 FL (9.6-12.0); Neutrophils % 85.2 % (38.7-73.9); Platelet Count 104 T/CUMM (130-400); Red Blood Count 3.81 MC/CUMM (3.8-5.5); Red Cell Distribution Width 11.4 % (9.3-17.3)
[2020-11-02 04:43] LABS: Albumin 3.1 G/DL (3.4-5.0); Bilirubin,Total 0.6 MG/DL (0.20-1.00); Calcium 8.7 MG/DL (8.5-10.1); Total Protein 5.8 G/DL (6.4-8.2)
[2020-11-02] MEDS: SODIUM CHLORIDE 0.9% 1,000 ML IV SCH ×2 (05:29→16:34)
[2020-11-02] MEDS: methylPREDNISolone SOD SUC 40 MG/1 ML VIAL IV SCH ×3 (05:57→23:18)
[2020-11-02 06:56] LABS: Lymphocytes 7 % (20-55); Microcytosis Slight; Platelet Estimate Decreased; Segmented Neutrophils 92 % (50-85); Total Cells Counted 100
[2020-11-02] MEDS: MORPHINE 2 MG/1 ML SYRINGE IV PRN ×4 (07:12→23:41)
[2020-11-02] MEDS: LEVOTHYROXINE 75 MCG TABLET PO SCH (07:15)
[2020-11-02] MEDS ORDERED: CLOPIDOGREL 75 MG TABLET PO SCH (09:00)
[2020-11-02] MEDS: PANTOPRAZOLE 40 MG VIAL IV SCH ×2 (09:32→21:21)
[2020-11-02] MEDS: NICOTINE 21 MG/24 HR PATCH TRANSDERM SCH (09:33)
[2020-11-02] MEDS: ASPIRIN EC 81 MG TABLET PO SCH (14:44)
[2020-11-02] MEDS: AZITHROMYCIN 250 MG TABLET PO SCH (14:44)
[2020-11-02] MEDS: ONDANSETRON 4 MG/2 ML VIAL IV PRN (19:15)
[2020-11-03] MEDS: ALBUTEROL/IPRATROPIUM 3 ML NEB RESP TX SCH ×3 (01:47→13:09)
[2020-11-03] MEDS: SODIUM CHLORIDE 0.9% 1,000 ML IV SCH ×2 (02:49→10:18)
[2020-11-03 05:32] LABS: Hematocrit 36.8 VOL% (35.7-47.0); Hemoglobin 12.1 GM/DL (12.0-16.0); Immature Granulocytes % 0.9 %; Immature Granulocytes Absolute 0.07 #; Lymphocytes # 0.4 10*3/uL (1.4-4.0); Lymphocytes % 4.4 % (21.3-54.2); Mean Corpuscular HGB Conc 32.9 GM/DL (32-36); Mean Corpuscular Volume 94.1 FL (87-102); Mean Platelet Volume 11.8 FL (9.6-12.0); Monocytes % 1.9 % (1.7-12.7); Neutrophils % 92.8 % (38.7-73.9); Platelet Count 111 T/CUMM (130-400); Red Blood Count 3.91 MC/CUMM (3.8-5.5); Red Cell Distribution Width 11.6 % (9.3-17.3); White Blood Count 8.2 T/CUMM (4-12)
[2020-11-03] MEDS: MORPHINE 2 MG/1 ML SYRINGE IV PRN ×2 (05:46→10:26)
[2020-11-03] MEDS: methylPREDNISolone SOD SUC 40 MG/1 ML VIAL IV SCH (05:51)
[2020-11-03 05:58] LABS: Hypochromasia Slight; Lymphocytes 4 % (20-55); Microcytosis Slight; Segmented Neutrophils 96 % (50-85); Total Cells Counted 100
[2020-11-03 06:00] LABS: Calcium 8.4 MG/DL (8.5-10.1); Osmolality,Calculated 291.6 MOS/KG (273-304); Potassium 3.8 MMOL/L (3.5-5.1)
[2020-11-03 06:05] LABS: Alanine Aminotransferase 14 U/L (13-56); Albumin 3.4 G/DL (3.4-5.0); Alkaline Phosphatase 93 U/L (45-117); Aspartate Amino Transferase 12 U/L (0-37); Bilirubin,Direct < 0.100 MG/DL (0.0-0.20); Bilirubin,Indirect 0.7 MG/DL (0.0-1.0); Total Protein 6.2 G/DL (6.4-8.2)
[2020-11-03] MEDS ORDERED: LACTATED RINGERS 1,000 ML IV SCH (07:00)
[2020-11-03] MEDS: PANTOPRAZOLE 40 MG VIAL IV SCH (08:27)
[2020-11-03] MEDS ORDERED: amLODIPine 10 MG TABLET PO SCH (09:00)
[2020-11-03] MEDS ORDERED: predniSONE 20 MG TABLET PO SCH (09:00)
[2020-11-03] MEDS ORDERED: amLODIPine 5 MG TABLET PO SCH (09:00)
[2020-11-03] MEDS ORDERED: propofoL 200 MG/20 ML VIAL IV ONE (09:14)
[2020-11-03] MEDS ORDERED: LIDOCAINE 2% 5 ML VIAL ONE (09:14)
[2020-11-03] MEDS: ASPIRIN EC 81 MG TABLET PO SCH (09:38)
[2020-11-03] MEDS: LEVOTHYROXINE 75 MCG TABLET PO SCH (09:38)
[2020-11-03] MEDS: NICOTINE 21 MG/24 HR PATCH TRANSDERM SCH (10:17)
[2020-11-03] MEDS: ONDANSETRON 4 MG/2 ML VIAL IV PRN (10:46)
[2020-11-03] MEDS: AZITHROMYCIN 250 MG TABLET PO SCH (14:20)
[2020-11-03 16:53] VITALS: BP 146/64
== END 2020-11-03 18:04 | disposition home or self-care (01) | DRG 191 ==
LOC: N.ED 12:05 → SUATTDRO 17:28 → N.EDINP 17:28 → N.3E 20:06
PROVIDERS: ADMIT Hospitalist; ATTEND Internal Medicine

== ENCOUNTER 2021-01-29 12:50 | Observation (INO) ==
[2021-01-29] MEDS ORDERED: ASPIRIN 325 MG TABLET PO STA (13:20)
[2021-01-29 13:25] LABS: Basophils # 0.1 10*3/uL (0.0-0.2); Basophils % 1.4 % (0.0-0.8); Eosinophils # 0.4 10*3/uL (0.0-0.87); Eosinophils % 5.4 % (0.00-10.9); Hematocrit 44.2 VOL% (35.7-47.0); Hemoglobin 14.5 GM/DL (12.0-16.0); Immature Granulocytes % 0.3 %; Immature Granulocytes Absolute 0.02 #; Mean Corpuscular HGB Conc 32.8 GM/DL (32-36); Mean Corpuscular Volume 93.2 FL (87-102); Mean Platelet Volume 10.6 FL (9.6-12.0); Monocytes % 10.9 % (1.7-12.7); Platelet Count 225 T/CUMM (130-400); Red Blood Count 4.74 MC/CUMM (3.8-5.5); Red Cell Distribution Width 11.5 % (9.3-17.3)
[2021-01-29] MEDS: NITROGLYCERIN SL 0.4 MG TABLET SL PRN (13:35)
[2021-01-29 13:41] LABS: Albumin 3.7 G/DL (3.4-5.0); Bilirubin,Total 0.7 MG/DL (0.20-1.00); Calcium 8.8 MG/DL (8.5-10.1); Osmolality,Calculated 280.3 MOS/KG (273-304); Potassium 4.3 MMOL/L (3.5-5.1); Total Protein 6.4 G/DL (6.4-8.2)
[2021-01-29] MEDS ORDERED: ONDANSETRON 4 MG/2 ML VIAL IV ONE (13:44)
[2021-01-29] MEDS ORDERED: ACETAMINOPHEN 500 MG TABLET PO STA (13:46)
[2021-01-29] MEDS ORDERED: MORPHINE 2 MG/1 ML SYRINGE IV STA (14:41)
[2021-01-29] MEDS ORDERED: DOCUSATE SODIUM 100 MG CAPSULE PO PRN (16:33)
[2021-01-29] MEDS ORDERED: hydrALAZINE 20 MG/1 ML VIAL IV PRN (16:33)
[2021-01-29] MEDS ORDERED: GLUCAGON 1 MG VIAL IM PRN (16:33)
[2021-01-29] MEDS ORDERED: ONDANSETRON 4 MG/2 ML VIAL IV PRN (16:33)
[2021-01-29] MEDS ORDERED: DEXTROSE 50% 25 GM/50 ML VIAL IV PRN (16:33)
[2021-01-29] MEDS ORDERED: NITROGLYCERIN SL 0.4 MG TABLET SL PRN (16:36)
[2021-01-29] MEDS ORDERED: ACETAMINOPHEN 325 MG TABLET PO PRN (16:37)
[2021-01-29] MEDS ORDERED: NICOTINE 21 MG/24 HR PATCH TRANSDERM PRN (16:56)
[2021-01-29 17:08] LABS: Risk Ratio 3.47; Thyroid Stimulating Hormone 8.41 uIU/ml (0.358-3.74); VLDL Cholesterol 15.6 MG/DL
[2021-01-29 18:11] LABS: Bilirubin,Urine Negative (Negative); Blood, Urine Negative (Negative); Glucose,Urine (UA) Negative (Negative); Hyaline Casts,Urine 1 /LPF (0-3); Ketones,Urine Negative (Negative); Mucus,Urine Few /LPF (Occasional); Nitrite,Urine Negative (Negative); Protein,Urine Negative; Squamous Epithelial Cell,Urine Occasional /HPF (0-10); Urine Appearance CLEAR (Clear); Urine Color Yellow (Yellow); Urine Specific Gravity 1.012 (1.001-1.035); Urine Urobilinogen < 2.0 EU/DL (0.2-1.0)
[2021-01-29] MEDS: ENOXAPARIN 40 MG/0.4 ML SYRINGE SUBCUT SCH (19:03)
[2021-01-29] MEDS: ALBUTEROL 2.5 MG/3 ML NEB RESP TX SCH (19:40)
[2021-01-29] MEDS: MORPHINE 2 MG/1 ML SYRINGE IV PRN (21:08)
[2021-01-29] MEDS: BUDESONIDE GLYCOPYR FORMOTEROL INH SCH (21:13)
[2021-01-30] MEDS: ALBUTEROL 2.5 MG/3 ML NEB RESP TX SCH ×4 (01:33→19:20)
[2021-01-30] MEDS: PROMETHAZINE 25 MG TABLET PO PRN ×2 (04:28→21:05)
[2021-01-30 05:42] LABS: Basophils # 0.1 10*3/uL (0.0-0.2); Basophils % 2.2 % (0.0-0.8); Eosinophils # 0.5 10*3/uL (0.0-0.87); Eosinophils % 8.6 % (0.00-10.9); Hematocrit 42.8 VOL% (35.7-47.0); Hemoglobin 13.7 GM/DL (12.0-16.0); Immature Granulocytes % 0.6 %; Immature Granulocytes Absolute 0.03 #; Lymphocytes # 1.6 10*3/uL (1.4-4.0); Lymphocytes % 30.1 % (21.3-54.2); Mean Corpuscular Volume 96.6 FL (87-102); Mean Platelet Volume 11.2 FL (9.6-12.0); Monocytes % 11.8 % (1.7-12.7); Neutrophils % 46.7 % (38.7-73.9); Platelet Count 187 T/CUMM (130-400); Red Blood Count 4.43 MC/CUMM (3.8-5.5); Red Cell Distribution Width 11.6 % (9.3-17.3); White Blood Count 5.4 T/CUMM (4-12)
[2021-01-30 06:08] LABS: Albumin 3.4 G/DL (3.4-5.0); Bilirubin,Total 0.6 MG/DL (0.20-1.00); Calcium 8.6 MG/DL (8.5-10.1); Osmolality,Calculated 284.1 MOS/KG (273-304); Potassium 4.7 MMOL/L (3.5-5.1); Total Protein 6.1 G/DL (6.4-8.2)
[2021-01-30] MEDS ORDERED: LEVOTHYROXINE 75 MCG TABLET PO SCH (06:30)
[2021-01-30] MEDS: NITROGLYCERIN SL 0.4 MG TABLET SL PRN ×2 (07:46→07:54)
[2021-01-30 08:30] LABS: Free T4 (Free Thyroxine) 1.26 NG/DL (0.76-1.46)
[2021-01-30] MEDS: amLODIPine 10 MG TABLET PO SCH (09:28)
[2021-01-30] MEDS: MORPHINE 2 MG/1 ML SYRINGE IV PRN ×2 (09:28→18:12)
[2021-01-30] MEDS: CLOPIDOGREL 75 MG TABLET PO SCH (09:28)
[2021-01-30] MEDS: BUDESONIDE GLYCOPYR FORMOTEROL INH SCH ×2 (09:29→23:54)
[2021-01-30 09:55] LABS: AFP Tumor < 2.2 NG/ML (0-8); Cancer Antigen 19-9 15.72 U/ML (0-35)
[2021-01-30] MEDS ORDERED: methylPREDNISolone SOD SUC 40 MG/1 ML VIAL IV ONE (15:09)
[2021-01-30] MEDS: ENOXAPARIN 40 MG/0.4 ML SYRINGE SUBCUT SCH (16:38)
[2021-01-31] MEDS: MORPHINE 2 MG/1 ML SYRINGE IV PRN (01:17)
[2021-01-31] MEDS: ALBUTEROL 2.5 MG/3 ML NEB RESP TX SCH ×2 (02:00→08:47)
[2021-01-31] MEDS ORDERED: LEVOTHYROXINE 88 MCG TABLET PO SCH (06:30)
[2021-01-31 07:52] VITALS: BP 144/95
[2021-01-31] MEDS: amLODIPine 10 MG TABLET PO SCH (08:03)
[2021-01-31] MEDS: CLOPIDOGREL 75 MG TABLET PO SCH (08:03)
[2021-01-31] MEDS: BUDESONIDE GLYCOPYR FORMOTEROL INH SCH (08:03)
[2021-01-31] MEDS: PROMETHAZINE 25 MG TABLET PO PRN (08:03)
== END 2021-01-31 11:50 | disposition home or self-care (01) ==
LOC: EDUNIT# → EDBD → N.ED 12:50 → N.EDINP 12:50 → SUATTDRO 16:33 → N.TELEN 18:03
PROVIDERS: ADMIT Internal Medicine Geriatric Medicine; ATTEND Internal Medicine

== ENCOUNTER 2022-04-06 11:53 | Inpatient (IN) ==
[2022-04-06] MEDS ORDERED: SODIUM CHLORIDE 0.9% 1,000 ML IV STA (15:07)
[2022-04-06] MEDS ORDERED: ONDANSETRON 4 MG/2 ML VIAL IV STA (15:07)
[2022-04-06 16:10] LABS: Basophils # 0.1 10*3/uL (0.0-0.2); Basophils % 1.1 % (0.0-0.8); Eosinophils # 0.3 10*3/uL (0.0-0.87); Eosinophils % 4.8 % (0.00-10.9); Hematocrit 42.1 VOL% (35.7-47.0); Hemoglobin 14.5 GM/DL (12.0-16.0); Immature Granulocytes % 0.5 %; Immature Granulocytes Absolute 0.03 #; Lymphocytes # 1.5 10*3/uL (1.4-4.0); Lymphocytes % 26.7 % (21.3-54.2); Mean Corpuscular HGB Conc 34.4 GM/DL (32-36); Mean Corpuscular Volume 96.1 FL (87-102); Mean Platelet Volume 10.6 FL (9.6-12.0); Monocytes # 0.7 10*3/uL (0.11-0.8); Monocytes % 12.9 % (1.7-12.7); Platelet Count 206 T/CUMM (130-400); Red Blood Count 4.38 MC/CUMM (3.8-5.5); White Blood Count 5.6 T/CUMM (4-12)
[2022-04-06 16:32] LABS: Albumin 3.8 G/DL (3.4-5.0); Bilirubin,Total 0.5 MG/DL (0.20-1.00); Calcium 9.2 MG/DL (8.5-10.1); Osmolality,Calculated 277.5 MOS/KG (273-304); Potassium 4.4 MMOL/L (3.5-5.1); Total Protein 7.1 G/DL (6.4-8.2)
[2022-04-06] MEDS ORDERED: KETOROLAC 30 MG/1 ML VIAL IV STA (17:23)
[2022-04-06] MEDS ORDERED: hydrALAZINE 20 MG/1 ML VIAL IV STA (17:23)
[2022-04-06] MEDS ORDERED: ONDANSETRON 4 MG/2 ML VIAL IV PRN (18:09)
[2022-04-06] MEDS ORDERED: hydrALAZINE 20 MG/1 ML VIAL IV PRN (18:21)
[2022-04-06] MEDS ORDERED: KETOROLAC 30 MG/1 ML VIAL IV PRN (18:21)
[2022-04-06] MEDS ORDERED: NICOTINE 7 MG/24 HR PATCH TRANSDERM PRN (18:23)
[2022-04-06] MEDS: ALBUTEROL/IPRATROPIUM 3 ML NEB RESP TX SCH (19:13)
[2022-04-06] MEDS ORDERED: ENOXAPARIN 30 MG/0.3 ML SYRINGE SUBCUT SCH (21:00)
[2022-04-06] MEDS: DEXTROSE 5% NACL 0.45% 1,000 ML IV SCH (22:15)
[2022-04-06 23:00] LABS: Hyaline Casts,Urine 3 /LPF (0-3); Mucus,Urine Occasional /LPF (Occasional); RBC,Urine <1 /HPF (0-4)
[2022-04-06 23:01] LABS: Bilirubin,Urine Negative (Negative); Blood, Urine Negative (Negative); Glucose,Urine (UA) Negative (Negative); Ketones,Urine Negative (Negative); Nitrite,Urine Negative (Negative); Protein,Urine Negative (Negative); Urine Appearance Clear (Clear); Urine Color Yellow (Yellow); Urine Urobilinogen 0.2 eU/dL (<2.0)
[2022-04-06 23:33] LABS: Barbiturates Screen,Urine Negative (Negative); Benzodiazepines Screen,Urine Negative (Negative); Cannabinoid Screen,Urine Negative (Negative); Opiate Screen,Urine Positive (Negative); Phencyclidine Screen,Urine Negative (Negative)
[2022-04-07] MEDS: MORPHINE 2 MG/1 ML SYRINGE IV PRN ×2 (00:24→05:56)
[2022-04-07] MEDS: ALBUTEROL/IPRATROPIUM 3 ML NEB RESP TX SCH ×4 (01:34→19:20)
[2022-04-07 05:48] LABS: Basophils % 0.6 % (0.0-0.8); Eosinophils # 0.1 10*3/uL (0.0-0.87); Eosinophils % 2.1 % (0.00-10.9); Hematocrit 34.1 VOL% (35.7-47.0); Immature Granulocytes % 0.4 %; Immature Granulocytes Absolute 0.02 #; Lymphocytes % 20.9 % (21.3-54.2); Mean Corpuscular HGB Conc 34.9 GM/DL (32-36); Mean Corpuscular Volume 95.5 FL (87-102); Mean Platelet Volume 10.7 FL (9.6-12.0); Monocytes # 0.5 10*3/uL (0.11-0.8); Monocytes % 11.2 % (1.7-12.7); Neutrophils % 64.8 % (38.7-73.9); Red Blood Count 3.57 MC/CUMM (3.8-5.5); Red Cell Distribution Width 10.9 % (9.3-17.3); White Blood Count 4.8 T/CUMM (4-12)
[2022-04-07 06:08] LABS: Hemoglobin 11.9 GM/DL (12.0-16.0)
[2022-04-07 06:09] LABS: Platelet Count 147 T/CUMM (130-400)
[2022-04-07 06:22] LABS: Albumin 2.8 G/DL (3.4-5.0); Bilirubin,Total 0.4 MG/DL (0.20-1.00); Calcium 7.9 MG/DL (8.5-10.1); Osmolality,Calculated 282.1 MOS/KG (273-304); Potassium 3.4 MMOL/L (3.5-5.1); Thyroid Stimulating Hormone 14.7 uIU/ml (0.358-3.74); Total Protein 5.2 G/DL (6.4-8.2)
[2022-04-07 08:59] LABS: % Iron Saturation 17.2 % (18-50)
[2022-04-07] MEDS ORDERED: PANTOPRAZOLE 40 MG VIAL IV SCH (09:00)
[2022-04-07 09:16] LABS: Free T4 (Free Thyroxine) 1.2 NG/DL (0.76-1.46)
[2022-04-07] MEDS: DEXTROSE 5% NACL 0.45% 1,000 ML IV SCH (09:49)
[2022-04-07] MEDS: POTASSIUM CHLORIDE RIDER 10 MEQ/100 ML PREMIX IV PRN ×2 (09:49→13:50)
[2022-04-07] MEDS ORDERED: MAGNESIUM SULF RIDER 2 GM/50 ML PREMIX IV ONE (16:56)
[2022-04-07] MEDS: PANTOPRAZOLE 40 MG VIAL IV SCH (20:55)
[2022-04-08] MEDS: ALBUTEROL/IPRATROPIUM 3 ML NEB RESP TX SCH ×3 (00:15→13:10)
[2022-04-08] MEDS: DEXTROSE 5% NACL 0.45% 1,000 ML IV SCH (00:56)
[2022-04-08 05:21] LABS: Basophils % 0.9 % (0.0-0.8); Eosinophils # 0.1 10*3/uL (0.0-0.87); Eosinophils % 3.5 % (0.00-10.9); Hematocrit 33.9 VOL% (35.7-47.0); Hemoglobin 11.4 GM/DL (12.0-16.0); Immature Granulocytes % 0.3 %; Immature Granulocytes Absolute 0.01 #; Lymphocytes # 0.8 10*3/uL (1.4-4.0); Lymphocytes % 21.8 % (21.3-54.2); Mean Corpuscular HGB Conc 33.6 GM/DL (32-36); Mean Corpuscular Volume 95.5 FL (87-102); Mean Platelet Volume 10.2 FL (9.6-12.0); Monocytes # 0.4 10*3/uL (0.11-0.8); Monocytes % 11.6 % (1.7-12.7); Neutrophils % 61.9 % (38.7-73.9); Platelet Count 133 T/CUMM (130-400); Red Blood Count 3.55 MC/CUMM (3.8-5.5); White Blood Count 3.4 T/CUMM (4-12)
[2022-04-08 05:44] LABS: Albumin 2.6 G/DL (3.4-5.0); Bilirubin,Total 0.4 MG/DL (0.20-1.00); Calcium 7.7 MG/DL (8.5-10.1); Osmolality,Calculated 283.8 MOS/KG (273-304); Total Protein 4.8 G/DL (6.4-8.2)
[2022-04-08] MEDS: PANTOPRAZOLE 40 MG VIAL IV SCH (09:27)
[2022-04-08] MEDS ORDERED: lisinopriL 10 MG TABLET PO SCH (13:00)
[2022-04-08 13:52] VITALS: BP 144/84
[2022-04-08] MEDS ORDERED: predniSONE 20 MG TABLET PO ONE (20:00)
[2022-04-09] MEDS ORDERED: predniSONE 20 MG TABLET PO ONE ×2 (02:00→08:00)
== END 2022-04-08 14:34 | disposition home or self-care (01) | DRG 388 ==
LOC: N.ED 11:53 → N.3E 18:09
PROVIDERS: ADMIT Family Medicine; ATTEND Family Medicine